=== PATIENT | male | born 1955 | race Caucasian/White ===

== ENCOUNTER 2017-03-28 14:00 | Emergency (ER) | payer OTHER, MEDICAID ==
[2017-03-28 14:05] VITALS: TEMP 97.9
--- NOTE | 2017-03-28 14:17 | EDPHY ---
H & P Stated Complaint: CP since Time Seen by Provider: 03/28/17 14:17 HPI/ROS: HPI: This is a 61-year-old male who presents with Chief Complaint: Left rib pain Location: Left rib Quality: Aching, sharp at times Duration: 4 days Signs and Symptoms: No lower extremity swelling, no orthopnea, no paroxysmal nocturnal dyspnea, no chest pain, no palpitations, no injury, no abdominal pain , no nausea vomiting, no diaphoresis Timing: Constant, worse with certain positions Severity: 04/27 Context: History of esophageal cancer. Presents with mom in its onset of left rib pain worse with certain positions/touching the area/taking a deep breath. Patient is a smoker and has a chronic cough. Denies recent trauma/injury/fall. No recent long distance travel. Denies cardiac history/testing. Avoid NSAIDs due to history of GI bleed. Eating and drinking without difficulty. reports that a week ago that they bought new sheets that cause increased coughing with patient. The returned she is in the coughing episodes have decreased. Modifying Factors: Has not tried anything for the pain. Comment: ROS: Constitutional: No fever, no chills, no weight loss Eyes: No blurred vision Respiratory: No shortness of breath, + cough Cardiovascular: No chest pain Gastrointestinal: No nausea, no vomiting no diarrhea Genitourinary: No dysuria Extremities: No myalgias Neurologic: No weakness, no numbness Skin: No rashes Hematologic: No bruising, no bleeding Source: Patient Exam Limitations: No limitations - Personal History Current Tetanus/Diphtheria Vaccine: Yes Current Tetanus Diphtheria and Acellular Pertussis (TDAP): Yes Tetanus Vaccine Date: 2007 - Medical/Surgical History Hx Asthma: No Hx Chronic Respiratory Disease: No Hx Diabetes: No Hx Cardiac Disease: No Hx Renal Disease: No Hx Alcoholism: Yes Other PMH: ESOPHAGEAL CA, GI BLEED,CHRONIC PAIN - Social History Smoking Status: Current every day smoker - Physical Exam Exam: CONSTITUTIONAL: Chronically ill-appearing male who appears older than stated age, awake and alert, no obvious distress HEENT: Atraumatic and normocephalic, PERRL, EOMI. Tympanic membranes clear. . Oropharynx clear, no exudate and moist pink mucosa. Airway patent. No lymphadenopathy. No meningismus. Cardiovascular: Normal S1/S2, tachycardia, regular rhythm, without murmur rub or gallop. PULMONARY/CHEST: Symmetrical and left anterior middle rib reproducible tenderness with palpation: no ecchymosis/crepitus. Clear to auscultation bilaterally Good air movement. No accessory muscle usage. ABDOMEN: Soft, nondistended, nontender, no rebound, no guarding, no peritoneal signs, no masses or organomegaly. No CVAT. EXTREMITIES: 2/2 pulses, no deformities, no clubbing, no cyanosis or edema. NEUROLOGICAL: no focal neuro deficits. GCS 15. SKIN: Warm and dry, no erythema. no rash. Good capillary refill. Constitutional: Initial Vital Signs Temperature (C) 36.6 C 03/28/17 14:03 Heart Rate 105 H 03/28/17 14:03 Respiratory Rate 20 03/28/17 14:03 Blood Pressure 148/104 H 03/28/17 14:03 O2 Sat (%) 96 03/28/17 14:03 O2 Delivery Mode Room Air Allergies/Adverse Reactions: Sulfa (Sulfonamide Antibiotics) Allergy (Verified 02/21/13 16:41) Home Medications: Medication Instructions Recorded Herbals/Supplements -Info Only 1 each PO AD 02/21/13 diphenhydrAMINE [Benadryl] 25 mg PO HS PRN 05/18/13 Cephalexin [Keflex] 500 mg PO Q6H #28 cap 04/19/16 Lidocaine 5% [Lidoderm 5% Patch 1 ea TD DAILY #12 patch 03/28/17 (*)] predniSONE [predniSONE TAPER] 10 mg PO DAILY #21 ea 03/28/17 traMADol [Ultram 50 mg (*)] 50 mg PO Q4 PRN #12 tab 03/28/17 Medical Decision Making - Diagnostics EKG Interpretation: 12 lead EKG: Indication:chest pain Rhythm: Normal sinus rhythm, rate 88 bpm [place]: Normal Intervals: Normal QRS: Normal ST segments: Normal INTERPRETATION: Normal EKG. No EKGs to compare. The 12 lead EKG was interpreted by myself. Imaging Results: Imaging Impressions Ribs w/Chest X-Ray 03/28/17 14:22 Impression: 1. Nondisplaced fracture anterior lateral left eighth rib. 2. No active cardiopulmonary disease seen. Retrocardiac density presumably related to previous esophageal surgery. Chest/Thorax CTA 03/28/17 15:22 Impression: 1. No visible pulmonary embolus. 2. Acute nondisplaced anterolateral left 5th through 8th rib fractures. 3. Subacute nondisplaced anterior left 4th rib fracture. 4. Bronchitis with mucous plugging. 5. Mild centrilobular emphysema. 6. Additional findings, as above. Findings discussed with Deborah Nichols PA-C on March 28, 2017 at 1633 hours. ED Course/Re-evaluation: EKG, labs, IV medication, chest x-ray including ribs Given IV morphine with moderate relief. No hypoxia/wheezing/respiratory distress Sodium 131 noted; low normal LFTs within normal limits Troponin within normal limits and no ischemic EKG changes D-dimer mildly elevated; CTA chest ordered to evaluate for PE X-ray my read via PAC shows a left 8th rib fracture; nondisplaced. No pneumothorax. 1625: Called by radiologist and CT chest shows left nondisplaced 5th through 8th rib fractures; no pneumothorax; no pulmonary embolism. Lidoderm patch placed. RT and nursing instructed patient on incentive spirometry. Patient was counseled to stop smoking. Offered admission for pain control and patient politely declined. 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 Discussed multiple rib fractures and risk for pneumonia secondary to splinting. He will be managed outpatient which I deem is reasonable as no hypoxia/ respiratory distress and pain is controlled. He already has a follow-up appointment scheduled his primary care provider this . A work note was provided to the patient. Differential Diagnosis: Chest pain including but not limited to myocardial ischemia, pulmonary embolus, chest wall pain, pleural inflammation and pulmonary infectious causes. - Data Points Laboratory Results: Laboratory Results 03/28/17 14:40 03/28/17 14:40 03/28/17 03/28/17 03/28/17 14:40 14:40 14:40 WBC 7.03 10^3/uL 10^3/uL (3.80-9.50) RBC 4.66 10^6/uL 10^6/uL (4.40-6.38) Hgb 14.4 g/dL g/dL (13.7-17.5) Hct 41.3 % % (40.0-51.0) MCV 88.6 fL fL (81.5-99.8) MCH 30.9 pg pg (27.9-34.1) MCHC 34.9 g/dL g/dL (32.4-36.7) RDW 12.7 % % (11.5-15.2) Plt Count 217 10^3/uL 10^3/uL (150-400) MPV 9.0 fL fL (8.7-11.7) Neut % (Auto) 82.8 % H % (39.3-74.2) Lymph % (Auto) 11.4 % L % (15.0-45.0) [place] % (Auto) 5.1 % % (4.5-13.0) Eos % (Auto) 0.3 % L % (0.6-7.6) Baso % (Auto) 0.1 % L % (0.3-1.7) Nucleat RBC Rel Count 0.0 % % (0.0-0.2) Absolute Neuts (auto) 5.82 10^3/uL 10^3/uL (1.70-6.50) Absolute Lymphs (auto) 0.80 10^3/uL L 10^3/uL (1.00-3.00) Absolute Monos (auto) 0.36 10^3/uL 10^3/uL (0.30-0.80) Absolute Eos (auto) 0.02 10^3/uL L 10^3/uL (0.03-0.40) Absolute Basos (auto) 0.01 10^3/uL L 10^3/uL (0.02-0.10) Absolute Nucleated RBC 0.00 10^3/uL 10^3/uL (0-0.01) Immature Gran % 0.3 % % (0.0-1.1) Immature Gran # 0.02 10^3/uL 10^3/uL (0.00-0.10) PT 12.8 SEC SEC (12.0-15.0) INR 0.97 (0.83-1.16) APTT 29.8 SEC SEC (23.0-38.0) D-Dimer 0.70 ug/mLFEU H ug/mLFEU (0.00-0.50) Sodium 131 mEq/L L mEq/L (134-144) Potassium 4.5 mEq/L mEq/L (3.5-5.2) Chloride 97 mEq/L mEq/L (97-110) Carbon Dioxide 24 mEq/l mEq/l (22-31) Anion Gap 10 mEq/L mEq/L (8-16) BUN 10 mg/dL mg/dL (7-23) Creatinine 0.9 mg/dL mg/dL (0.7-1.3) Estimated GFR > 60 Glucose 113 mg/dL H mg/dL (70-100) Calcium 9.2 mg/dL mg/dL (8.5-10.4) Total Bilirubin 0.8 mg/dL mg/dL (0.1-1.4) Conjugated Bilirubin 0.3 mg/dL mg/dL (0.0-0.5) Unconjugated Bilirubin 0.5 mg/dL mg/dL (0.0-1.1) AST 29 IU/L IU/L (17-59) ALT 27 IU/L IU/L (21-72) Alkaline Phosphatase 75 IU/L IU/L (38-126) Troponin I < 0.012 ng/mL ng/mL (0.000-0.034) NT-Pro-B Natriuret Pep 201 pg/mL H pg/mL (0-125) Total Protein 6.6 g/dL g/dL (6.3-8.2) Albumin 4.0 g/dL g/dL (3.5-5.0) Lipase 163 IU/L IU/L (23-300) Medications Given: Lidocaine (Lidoderm 5%) 1 ea TD DAILY CRISSY Stop: 09/25/17 08:59 Last Admin: 03/28/17 16:15 Dose: 1 ea Discontinued Medications Morphine Sulfate (Morphine) 4 mg IVP EDNOW ONE Stop: 03/28/17 14:23 Last Admin: 03/28/17 15:59 Dose: Not Given Departure - Departure Disposition: Home, Routine, Self-Care Clinical Impression: Bronchitis, Tobacco user Multiple fractures of ribs Qualifiers: Encounter type: initial encounter Fracture type: closed Laterality: left Qualified Code(s): S22.42XA - Multiple fractures of ribs, left side, initial encounter for closed fracture Condition: Good Instructions: Rib Fracture (ED) Additional Instructions: Apply ice for 30 minutes at a time; 2-3 times per day for the next 1-2 days. Use Lidoderm patch to control pain and Tramadol every 4-6 hours as needed for severe breakthrough pain. Rest as much as possible. Perform incentive spirometry 10 times every 2 hours for the next 4 days while awake. Follow up with primary care provider, Dr. Jones, on as previously scheduled. Stop smoking. Referrals: [facility],. [Clinic] - As per Instructions Stand Alone Forms: Work Excuse Prescriptions: Lidocaine 5% [Lidoderm 5% Patch (*)] 1 ea TD DAILY #12 patch predniSONE [predniSONE TAPER] 10 mg PO DAILY #21 ea traMADol [Ultram 50 mg (*)] 50 mg PO Q4 PRN #12 tab PRN Reason: Pain, Breakthrough
--- NOTE | 2017-03-28 14:24 | CPEKG ---
Heart Rate: 120 RR Interval: 500 P-R Interval: 192 QRSD Interval: 88 QT Interval: 368 QTC Interval: 520 P [place]: 43 QRS [place]: 32 T Wave [place]: 50 EKG Severity - ABNORMAL ECG - EKG Impression: sinus rhythm EKG Impression: short episode of supraventricular tachycardia Electronically Signed By: Romie Tinajero 30-Mar-2017 06:34:01
[2017-03-28 14:49] LABS: % IMMATURE GRANULYOCYTES 0.3 % (0.0-1.1); ABSOLUTE IMMATURE GRANULOCYTES 0.02 10^3/uL (0.00-0.10); ADD DIFF? NO; ADD MORPH? NO; ADD SCAN? NO; ATYPICAL LYMPHOCYTE FLAG 0 (0-99); FRAGMENT RBC FLAG 0 (0-99); HEMATOCRIT 41.3 % (40.0-51.0); HEMOGLOBIN 14.4 g/dL (13.7-17.5); LEFT SHIFT FLG 0 (0-99); LIPEMIA HEMOLYSIS FLAG 90 (0-99); MEAN CELL HEMOGLOBIN 30.9 pg (27.9-34.1); MEAN CELL HEMOGLOBIN CONCENTR. 34.9 g/dL (32.4-36.7); MEAN CELL VOLUME 88.6 fL (81.5-99.8); PLATELET CLUMPS FLAG 0 (0-99); PLATELET COUNT 217 10^3/uL (150-400); RED BLOOD CELL COUNT 4.66 10^6/uL (4.40-6.38); RED CELL DISTRIBUTION WIDTH 12.7 % (11.5-15.2)
[2017-03-28 14:58] LABS: INR 0.97 (0.83-1.16); PROTIME(PATIENT) 12.8 SEC (12.0-15.0)
[2017-03-28 14:59] LABS: APTT 29.8 SEC (23.0-38.0)
[2017-03-28 15:02] LABS: ALANINE AMINOTRANSFERASE 27 IU/L (21-72); ALKALINE PHOSPHATASE 75 IU/L (38-126); ANION GAP 10 mEq/L (8-16); ASPARTATE AMINOTRANSFERASE 29 IU/L (17-59); BILIRUBIN,TOTAL 0.8 mg/dL (0.1-1.4); BILIRUBIN-CONJUGATED 0.3 mg/dL (0.0-0.5); BILIRUBIN-UNCONJUGATED 0.5 mg/dL (0.0-1.1); CALCIUM 9.2 mg/dL (8.5-10.4); CARBON DIOXIDE 24 mEq/l (22-31); CHLORIDE 97 mEq/L (97-110); CREATININE 0.9 mg/dL (0.7-1.3); GLOMERULAR FILTRATION RATE > 60; GLUCOSE 113 mg/dL (70-100); POTASSIUM 4.5 mEq/L (3.5-5.2); SODIUM 131 mEq/L (134-144); TOTAL PROTEIN 6.6 g/dL (6.3-8.2)
[2017-03-28 15:14] LABS: TROPONIN I < 0.012 ng/mL (0.000-0.034)
[2017-03-28] MEDS ORDERED: IOPAMIDOL (ISOVUE 370) 100 ML BTL IV ONE ×2 (15:37→15:55)
[2017-03-28] MEDS ORDERED: LIDOCAINE 5% 1 EA PATCH TD ONE (16:10)
[2017-03-28 17:17] VITALS: BP 172/106; PULSE 80; RESP 16; O2SAT 94
[2017-03-28] MEDS ORDERED: PATCH REMOVAL 1 EA PATCH TD SCH (21:00)
[2017-03-29] MEDS ORDERED: LIDOCAINE 5% 1 EA PATCH TD SCH (09:00)
== END 2017-03-28 17:17 | disposition home or self-care (01) ==
DX: S22.42XA Multiple fractures of ribs, left side, initial encounter for closed fracture (principal); J40 Bronchitis, not specified as acute or chronic; F17.200 Nicotine dependence, unspecified, uncomplicated; Z85.01 Personal history of malignant neoplasm of esophagus; X58.XXXA Exposure to other specified factors, initial encounter; Y99.8 Other external cause status
CPT/HCPCS: Q9967

== ENCOUNTER 2017-05-29 19:50 | Emergency (ER) | payer OTHER, MEDICAID ==
[2017-05-29 19:59] VITALS: TEMP 98.6
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
[2017-05-29] MEDS ORDERED: HYDROCOD/APAP 5/325 PREPACK#6 BTL TAKEHOME ONE (21:14)
[2017-05-29 21:43] VITALS: BP 153/93; PULSE 89; RESP 16; O2SAT 94
== END 2017-05-29 21:43 | disposition home or self-care (01) ==
LOC: EDUNIT#
DX: S89.92XA Unspecified injury of left lower leg, initial encounter (principal); F17.200 Nicotine dependence, unspecified, uncomplicated; Z85.01 Personal history of malignant neoplasm of esophagus; V03.10XA Pedestrian on foot injured in collision with car, pick-up truck or van in traffic accident, initial encounter; Y92.410 Unspecified street and highway as the place of occurrence of the external cause; Y93.89 Activity, other specified
CPT/HCPCS: L1830

== ENCOUNTER 2019-01-06 19:07 | Emergency (ER) | payer OTHER, MEDICAID | END 2019-01-06 22:17 | disposition home or self-care (01) ==